=== PATIENT | male | born 1970 | race Caucasian/White ===

== ENCOUNTER 2020-02-01 07:51 | Emergency (ER) | payer OTHER ==
[~2020-02-01] VITALS: Ht 185.4 cm; Wt 106.1 kg
[2020-02-01 08:04] VITALS: BP 142/53
[2020-02-01 08:24] LABS: BASO # 0.1 10*3/uL (0.0-0.1); BASO % 0.8 % (0.0-1.0); EOS # 0.1 10*3/uL (0.0-0.4); EOS % 1.7 % (1.0-4.0); HEMATOCRIT 31.6 % (42.0-52.0); LYMPH # 1.6 10*3/uL (1.3-4.4); LYMPH % 22.2 % (27.0-41.0); MEAN CELL VOLUME 83.8 fl (80.0-94.0); MEAN CORPUSCULAR HGB 24.1 pg (27.0-31.0); MEAN CORPUSCULAR HGB CONC 28.8 g/dl (33.0-37.0); MEAN PLATELET VOLUME 8.9 fl (9.6-12.3); MONO # 0.6 10*3/uL (0.1-1.0); MONO % 7.9 % (3.0-9.0); NEUT # 4.8 10*3/uL (2.3-7.9); NEUT % 66.6 % (47.0-73.0); PLATELET COUNT AUTOMATED 305 10*3/uL (130-400); RED BLOOD COUNT 3.77 10*6/uL (4.50-5.90); RED CELL DISTRI WIDTH 19.8 % (0-14.5); WHITE BLOOD COUNT 7.3 10*3/uL (4.8-10.8)
[2020-02-01 08:36] LABS: ACT PARTIAL THROMBO TIME 29.3 SECONDS (20.0-32.1)
[2020-02-01 08:40] LABS: ALBUMIN 3.4 gm/dl (3.1-4.5); ALKALINE PHOSPHATASE 87 U/L (45-117); BUN 41 mg/dl (7-24); CHLORIDE 111 mmol/L (98-107); CREATININE 2.95 mg/dL (0.70-1.30); POTASSIUM 5.5 mmol/L (3.5-5.1); SGOT/AST 5 IU/L (3-35); SGPT/ALT 24 U/L (12-78); SODIUM 138 mmol/L (136-145); TOTAL PROTEIN 7.2 gm/dL (6.4-8.2)
[2020-02-01 08:41] LABS: LIPASE 289 U/L (73-393)
[2020-02-01 08:47] LABS: TROPONIN I < 0.015 ng/ml (<0.045)
[2020-02-01 08:57] VITALS: BP 122/68
--- NOTE | 2020-02-01 09:58 | NUR ---
PATIENT RESTING IN BED WATCHING TV. RR EASY AND NON-LABORED. CALL LIGHT WITHIN REACH. APPEARS TO BE IN NO DISTRESS. WILL CONTINUE TO MONITOR.
[2020-02-01 10:52] VITALS: BP 127/67
[2020-02-01] MEDS ORDERED: NEXIUM2.5 MG PO (12:00)
[2020-02-01] MEDS ORDERED: LISINOPRIL5 MG PO (12:00)
[2020-02-01] MEDS ORDERED: ALLOPURINOL100 MG PO (12:00)
[2020-02-01] MEDS ORDERED: MULTIVITAMINS1 EAC5 PO (12:01)
--- NOTE | 2020-02-01 12:40 | NUR ---
PATIENT RESTING IN BED WATCHING TV. RR EASY AND NON-LABORED. CALL LIGHT WITHIN REACH. APPEARS TO BE IN NO DISTRESS AT THIS TIME. PATIENT ORDERED LUNCH. WILL CONTINUE TO MONITOR.
[2020-02-01 12:43] VITALS: BP 123/68
[2020-02-01 14:19] VITALS: BP 124/72
--- NOTE | 2020-02-01 14:31 | NUR ---
PATIENT IS RESTING IN BED COMFORTABLY. RR EASY AND NON-LABORED. CALL LIGHT WITHIN REACH. WILL CONTINUE TO MONITOR AT THIS TIME.
--- NOTE | 2020-02-01 15:37 | NUR ---
DR. CONLEY STATES PATIENT IS ABLE TO BE DISCHARGED.
--- NOTE | 2020-02-01 15:44 | NUR ---
PATIENT NEVER WENT UPSTAIRS, DISCHARGED FROM ED.
== END 2020-02-01 15:45 | disposition home or self-care (01) ==
LOC: ED 07:51 → EDHOLD 09:50 → 5E 14:43 → EDHOLD 14:43 → 5E 14:43
PROVIDERS: Emergency Medicine
DX: R07.89 Other chest pain (principal); Z79.899 Other long term (current) drug therapy; Z88.0 Allergy status to penicillin